=== PATIENT | male | born 1930 | race Caucasian/White ===

== ENCOUNTER 2016-08-22 04:46 | Observation (INO) | payer MEDICARE ==
[~2016-08-22 04:46] MED LIST: ARICEPT10 M1 PO; ASPIR 8181 MG; ASPIRIN81 M1 PO; BABY ASPIRIN81 MG PO; CALCIUM PO; CALCIUM500 M1 PO; CELEXA20 M1 PO; CELEXA40 M2 PO; CELEXA40 MG PO; CITALOPRAM HBR20 MG PO; COUMADIN4 M1 PO; COUMADIN4 MG PO; COUMADIN5 M1 PO; COUMADIN6 MG; COUMADIN6 MG PO; ENALAPRIL MALEA10 MG; EXELON1 EAC1 TD; IMDUR30 MG PO; LASIX20 MG; LEVOTHROID112 MCG PO; LEVOTHROID75 MCG; LEVOTHROID75 MCG PO; LEVOTHYROXINE112 MC3 PO; LOPRESSOR25 MG/TA1 PO; LOVENOX100 MG/ML; METOPROLOL TART25 M1 PO; METOPROLOL TART25 MG; METOPROLOL TART25 MG PO; MULTIVITAMIN1 TAB; NORCO 5-325 TA1 EACH PO; OCUVITE TABLET1 EACH PO; OCUVITE TABLET1 TAB; OCUVITE TABLET1 TAB PO; OCUVITE WITH L1 EACH PO; PRAVACHOL20 MG PO; PRAVACHOL40 M1 PO; PRAVACHOL40 MG PO; PREDNISONE10 MG PO; SIMVASTATIN40 MG PO; SUPER B COMPLEX1 CAP PO; TOPROL XL25 MG; ZOCOR20 MG; ZOCOR40 MG; [UNRECOGNIZED DRUG - OTHER]
[2016-08-22 05:35] LABS: BASO % 0.3 % (0-2); EOS % 1.6 % (0-7); EOSINOPHIL ABSOLUTE COUNT 0.1 tho/cmm (0.0-0.7); HCT-HEMATOCRIT 34.8 % (36.0-53.5); HGB-HEMOGLOBIN 11.7 gm/dl (13.5-17.0); IMMATURE GRANULOCYTES ABSOLUTE 0.02 tho/cmm (0-0.03); IMMATURE GRANULOCYTES PERCENT 0.3 % (0-0.3); LYMPH % 22.9 % (20-45); LYMPH ABSOLUTE COUNT 1.6 tho/cmm (0.8-4.5); MCH (MEAN CORPUSCULAR HGB) 31.5 pg (28.0-32.0); MCHC MEAN CORPUSCULAR HGB CONC 33.6 % (32.0-36.0); MCV (MEAN CELL VOLUME) 93.8 fl (82.0-96.0); MEAN PLATELET VOLUME 9.7 cmc (9.4-12.4); MONO % 11.5 % (0-12); MONOCYTE ABSOLUTE COUNT 0.8 tho/cmm (0.0-1.2); NEUTROPHIL ABSOLUTE COUNT 4.4 tho/cmm (1.6-8.0); NEUTROPHIL-AUTOMATED 4.4 tho/cmm (1.6-8.0); NEUTROPHILS % 63.4 % (40-80); PLATELET COUNT 207 tho/cmm (150-450); PROTHROMBIN TIME 63.1 SECONDS (9.0-13.6); RED BLOOD COUNT 3.71 mil/cmm (4.40-5.70); RED CELL DISTRIBUTION WIDTH 13.7 % (12.4-16.4); WHITE BLOOD COUNT 6.9 tho/cmm (4.0-10.0)
[2016-08-22 05:46] LABS: INR 5.2 INR (0.9-1.1)
[2016-08-22 05:49] LABS: ALB/GLOB RATIO 1.1 (0.8-2.0); ALBUMIN 3.4 g/dl (3.5-5.0); ALKALINE PHOSPHATASE 102 U/L (33-138); ALT/SGPT 29 U/L (12-78); ANION GAP 13 mmol/L (0-20); AST/SGOT 25 U/L (10-40); BILIRUBIN,TOTAL 0.4 mg/dl (0.0-1.5); BLOOD UREA NITROGEN 20 mg/dl (6-24); CALCIUM 7.8 mg/dl (8.5-10.5); CARBON DIOXIDE-VENOUS 23 mmol/L (22-32); CHLORIDE 108 mmol/l (96-110); CREATININE 1.02 mg/dl (0.60-1.30); GLUCOSE 101 mg/dL (70-110); LIPASE 766 U/L (73-393); MAGNESIUM 1.9 mg/dl (1.8-2.6); POTASSIUM 4.1 mmol/L (3.7-5.1); SODIUM 140 mmol/L (135-145); eGFR VALUE FOR BLACK 77 mL/Min
[2016-08-22 05:54] LABS: TSH-THYROID STIMULATING HORM. 0.23 uIU/ml (0.40-3.80)
[2016-08-22 06:18] LABS: PROCALCITONIN <0.05 ng/ml (0.05-0.09)
[2016-08-22 06:43] LABS: URINE BILIRUBIN NEGATIVE (NEG); URINE BLOOD SMALL (NEG); URINE GLUCOSE (UA) NEGATIVE (NEG); URINE KETONE NEGATIVE (NEG); URINE LEUKOCYTE ESTERASE POSITIVE (NEG); URINE NITRITE NEGATIVE (NEG); URINE PROTEIN NEGATIVE (NEG)
[2016-08-22 06:46] LABS: URINE APPEARANCE CLEAR; URINE COLOR PALE YELLOW
[2016-08-22 06:49] LABS: URINE EPITHELIAL CELLS 0 /[HPF] (0-10); URINE RBC 0-2 /[HPF] (0-5)
[2016-08-23 06:50] LABS: BASO % 0.3 % (0-2); EOS % 1.4 % (0-7); EOSINOPHIL ABSOLUTE COUNT 0.1 tho/cmm (0.0-0.7); HCT-HEMATOCRIT 37.1 % (36.0-53.5); HGB-HEMOGLOBIN 12.3 gm/dl (13.5-17.0); IMMATURE GRANULOCYTES ABSOLUTE 0.02 tho/cmm (0-0.03); IMMATURE GRANULOCYTES PERCENT 0.3 % (0-0.3); LYMPH % 22.3 % (20-45); LYMPH ABSOLUTE COUNT 1.6 tho/cmm (0.8-4.5); MCH (MEAN CORPUSCULAR HGB) 31.2 pg (28.0-32.0); MCHC MEAN CORPUSCULAR HGB CONC 33.2 % (32.0-36.0); MCV (MEAN CELL VOLUME) 94.2 fl (82.0-96.0); MEAN PLATELET VOLUME 9.6 cmc (9.4-12.4); MONO % 9.5 % (0-12); MONOCYTE ABSOLUTE COUNT 0.7 tho/cmm (0.0-1.2); NEUTROPHIL ABSOLUTE COUNT 4.9 tho/cmm (1.6-8.0); NEUTROPHIL-AUTOMATED 4.9 tho/cmm (1.6-8.0); NEUTROPHILS % 66.2 % (40-80); PLATELET COUNT 195 tho/cmm (150-450); RED BLOOD COUNT 3.94 mil/cmm (4.40-5.70); RED CELL DISTRIBUTION WIDTH 13.7 % (12.4-16.4); WHITE BLOOD COUNT 7.4 tho/cmm (4.0-10.0)
[2016-08-23 06:56] LABS: PARTIAL THROMBOPLASTIN TIME 39 SECONDS (22-36)
[2016-08-23 07:02] LABS: INR 4.1 INR (0.9-1.1)
[2016-08-23 07:03] LABS: ALBUMIN 3.2 g/dl (3.5-5.0); ALKALINE PHOSPHATASE 76 U/L (33-138); ALT/SGPT 24 U/L (12-78); AMYLASE 75 U/L (20-90); ANION GAP 12 mmol/L (0-20); AST/SGOT 22 U/L (10-40); BLOOD UREA NITROGEN 12 mg/dl (6-24); CALCIUM 8.4 mg/dl (8.5-10.5); CARBON DIOXIDE-VENOUS 26 mmol/L (22-32); CHLORIDE 105 mmol/l (96-110); CREATININE 0.87 mg/dl (0.60-1.30); GLUCOSE 89 mg/dL (70-110); POTASSIUM 4.4 mmol/L (3.7-5.1); SODIUM 139 mmol/L (135-145); eGFR VALUE FOR BLACK >90 mL/Min
[2016-08-23 07:09] LABS: BILIRUBIN,TOTAL 0.8 mg/dl (0.0-1.5); LIPASE 495 U/L (73-393)
[2016-08-23] MEDS ORDERED: COUMADIN6 M1 PO (11:29)
== END 2016-08-23 14:20 ==
LOC: EDMED 04:46 → EMR2 10:23 → 5WE 12:18
PROVIDERS: Emergency Medicine; ADMIT Hospitalist
DX: R53.1 Weakness (principal); R42 Dizziness and giddiness; K85.90 Acute pancreatitis without necrosis or infection, unspecified; R79.1 Abnormal coagulation profile; R00.2 Palpitations; E03.9 Hypothyroidism, unspecified; I25.10 Atherosclerotic heart disease of native coronary artery without angina pectoris; I44.7 Left bundle-branch block, unspecified; K21.9 Gastro-esophageal reflux disease without esophagitis; M10.9 Gout, unspecified; R63.4 Abnormal weight loss; E78.5 Hyperlipidemia, unspecified; D64.9 Anemia, unspecified; Z68.29 Body mass index [BMI] 29.0-29.9, adult; Z79.01 Long term (current) use of anticoagulants; Z79.82 Long term (current) use of aspirin; Z79.899 Other long term (current) drug therapy; Z88.8 Allergy status to other drugs, medicaments and biological substances; Z86.73 Personal history of transient ischemic attack (TIA), and cerebral infarction without residual deficits; Z87.440 Personal history of urinary (tract) infections; Z95.2 Presence of prosthetic heart valve; Z95.0 Presence of cardiac pacemaker; Z95.1 Presence of aortocoronary bypass graft; Z90.49 Acquired absence of other specified parts of digestive tract; Z90.89 Acquired absence of other organs; Z96.651 Presence of right artificial knee joint; Z98.890 Other specified postprocedural states
CPT/HCPCS: C8929; G0378; G8978-GP-CI; G8979-GP-CI; G8980-GP-CK; G8987-GO-CJ; G8988-GO-CH; G8989-GO-CJ; J7030